=== PATIENT | female | born 1970 | race Caucasian/White ===

== ENCOUNTER 2021-12-28 11:10 | Emergency (ER) | payer OTHER ==
[~2021-12-28] VITALS: Ht 154.9 cm; Wt 74.8 kg
[~2021-12-28 11:10] MED LIST: ATIVAN1 MG PO; VICODIN 5/500 505 MG PO
[2021-12-28 11:48] LABS: BILIRUBIN Negative (Negative); BLOOD Negative (Negative); CLARITY Clear (Clear); COLOR Yellow (Yellow); GLUCOSE Negative (Negative); KETONE Negative (Negative); LEUKO ESTERASE 1+ (Negative); NITRITE Negative (Negative); PH 5.5 (4.5-8.0); SPECIFIC GRAVITY 1.015 (1.001-1.030); UROBILINOGEN 0.2 E.U./dl (0.0-1.0)
[2021-12-28 12:04] LABS: BACTERIA 4+
[2021-12-28] MEDS ORDERED: MACROBID100 M1 PO (12:31)
== END 2021-12-28 12:28 | disposition home or self-care (01) ==
LOC: ED 11:10
PROVIDERS: Physician Assistant
DX: N39.0 Urinary tract infection, site not specified (principal); Z20.822 Contact with and (suspected) exposure to COVID-19